=== PATIENT | male | born 1995 ===

== ENCOUNTER 2018-01-28 18:56 | Emergency (ER) | payer SELFPAY ==
[2018-01-28 19:30] VITALS: BP 125/79; PULSE 92; RESP 16; TEMP 98; O2SAT 100
--- NOTE | 2018-01-28 19:35 | ED PDOC ---
Lower Extremity Pain/Injury Time Seen by Provider: 01/28/18 19:34 Chief Complaint (Nursing): Lower Extremity Problem/Injury Chief Complaint (Provider): puncture wound History Per: Patient Additional Complaint(s): 22-year-old male presents for evaluation of puncture wound to left foot. Patient states earlier today he stepped on a nail while walking. Patient is not sure of last tetanus. He did not take anything for pain prior to arrival. PMD: none Past Medical History Reviewed: Historical Data, Nursing Documentation, Vital Signs Vital Signs: Last Vital Signs Temp 98.0 F 01/28/18 19:27 Pulse 92 H 01/28/18 19:27 Resp 16 01/28/18 19:27 BP 125/79 01/28/18 19:27 Pulse Ox 100 01/28/18 19:27 - Medical History PMH: No Chronic Diseases - Surgical History Surgical History: No Surg Hx - Family History Family History: States: No Known Family Hx - Living Arrangements Living Arrangements: With Family - Social History Current smoker - smoking cessation education provided: No Alcohol: None Drugs: Denies - Immunization History Hx Tetanus Toxoid Vaccination: No (not sure when last booster was) - Allergies Allergies/Adverse Reactions: Allergies Allergy/AdvReac Type Severity Reaction Status Date / Time No Known Allergies Allergy Verified 01/28/18 19:30 Wells Criteria for PE - Wells Criteria for Pulmonary Embolism Clinical Signs and Symptoms of DVT: No P.E is #1 Diagnosis, or Equally Likely: No Heart Rate >100: No Immobilization at least 3 days;Surgery previous 4 weeks: No Previous, objectively diagnosed PE or DVT: No Hemoptysis: No Malignancy w/treatment within 6 months, or palliative: No Total Score: 0 Review of Systems ROS Statement: Except As Marked, All Systems Reviewed And Found Negative Musculoskeletal: Positive for: Foot Pain (puncture wound left foot) Physical Exam - Reviewed Nursing Documentation Reviewed: Yes Vital Signs Reviewed: Yes - Physical Exam Appears: Positive for: Well, Non-toxic, No Acute Distress Skin: Negative for: Rash Eye Exam: Positive for: Normal appearance Extremity: Positive for: Other (Puncture wound noted to the plantar aspect of left foot, no active bleeding, mildly tender to palpation, no retained FB) Neurologic/Psych: Positive for: Alert, Oriented - ECG O2 Sat by Pulse Oximetry: 100 Pulse Ox Interpretation: Normal Medical Decision Making Medical Decision Makin22 y/o with puncture wound to right foot Plan: PO motrin Tetanus booster Patient was advised to keep the area clean and dry and take NSAIDs for pain as needed. He was referred to podiatry clinic for follow up Disposition - Clinical Impression Clinical Impression: Puncture wound, Requires a booster tetanus - Patient ED Disposition Is Patient to be Admitted: No Counseled Patient/Family Regarding: Diagnosis, Need For Followup - Disposition Referrals: Podiatry Clinic [Outside] Disposition: Routine/Home Disposition Time: 20:06 Condition: STABLE Additional Instructions: Wash wound daily with soap and water. Take [id number] Motrin for pain as needed. Follow-up with podiatry clinic in 2-3 days. Instructions: Diphtheria and Tetanus Toxoids, and Acellular Pertussis Vaccine, Wound Care (DC) Forms: [employer] ([employer]) Print Language: SCOTTISH
[2018-01-28] MEDS ORDERED: Tdap Vaccine 0.5 ml Vial (10-64 yrs) IM ONE ×2 (19:52→20:23)
== END 2018-01-28 21:43 | disposition home or self-care (01) ==
LOC: H.ER 18:56
DX: S91.332A Puncture wound without foreign body, left foot, initial encounter (principal); W26.8XXA Contact with other sharp object(s), not elsewhere classified, initial encounter; Y92.89 Other specified places as the place of occurrence of the external cause